=== PATIENT | female | born 1985 | race Caucasian/White ===

== ENCOUNTER 2018-03-20 19:19 | Emergency (ER) | payer SELFPAY ==
[2018-03-20 19:46] VITALS: O2SAT 98
--- NOTE | 2018-03-20 20:11 | ED.PDOC ---
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 Time Seen by Provider: 03/20/18 19:48 Source: patient Exam Limitations: no limitations - History of Present Illness Timing/Duration: this afternoon Quality: mild Onset Location: vaginal Radiation: none Activites at Onset: none Improving Factors: nothing Worsening Factors: nothing Associated Symptoms: other - pt reports vaginal bleeding, minimal with two small clots, unknown weeks , last perior was in january, possitive preg in february Home Medications: Ambulatory Orders Ferrous Sulfate 324 mg PO DAILY #30 tab 03/20/18 Nitrofurantoin Monohydrate Mac [Macrobid] 100 mg PO BID #14 capsule 03/20/18 Review of Systems - Review of Systems Constitutional: States: no symptoms reported EENTM: States: no symptoms reported Respiratory: States: no symptoms reported Cardiology: States: no symptoms reported Gastrointestinal/Abdominal: States: no symptoms reported Genitourinary: States: other - vaginal bleeding Musculoskeletal: States: no symptoms reported Skin: States: no symptoms reported Neurological: States: no symptoms reported Endocrine: States: no symptoms reported Past Medical History (General) - Patient Medical History Hx Thyroid Disease: Yes Surgical History: other - Vaccination History Hx Tetanus, Diphtheria Vaccination: No Hx Influenza Vaccination: No Hx Pneumococcal Vaccination: Yes - Social History Hx Alcohol Use: Yes - social - Female History Hx Last Menstrual Period: 02/04/18 Patient : Yes - unknown Family Medical History - Family History Mother Hx Family;Other: thyroid Physical Exam - Physical Exam General Appearance: Alert, Anxious Eyes, Ears, Nose, Throat Exam: PERRL/EOMI, normal ENT inspection, TMs normal Neck: non-tender, full range of motion, supple Cardiovascular/Respiratory: regular rate, rhythm, no M/R/G, normal peripheral pulses, no JVD Gastrointestinal/Abdominal: normal bowel sounds, non tender, soft Back Exam: normal inspection, no CVA tenderness, no vertebral tenderness Extremity: normal range of motion, non-tender, normal inspection Neurologic: no motor/sensory deficits, alert Skin Exam: normal color, warm/dry Progress - Progress Progress: 03/20/18 21:05 03/20/18 20:18 URINE CULTURE W/COLONY COUNT Stat Laboratory Results WBC 7.1 K/mm3 (4.8-10.8) 03/20/18 19:49 RBC 3.40 M/mm3 (4.20-5.40) L 03/20/18 19:49 Hgb 10.2 gm/dL (12.0-16.0) L 03/20/18 19:49 Hct 31.2 % (36.0-47.0) L 03/20/18 19:49 MCV 91.7 fl (81.0-99.0) 03/20/18 19:49 MCH 30.0 pg (27.0-31.0) 03/20/18 19:49 MCHC 32.6 g/dL (33.0-37.0) L 03/20/18 19:49 RDW 18.7 % (11.5-14.5) H 03/20/18 19:49 Plt Count 282 K/mm3 (130-400) 03/20/18 19:49 MPV 7.6 fl (7.40-10.4) 03/20/18 19:49 Absolute Neuts (auto) 4.50 K/uL (1.8-6.8) 03/20/18 19:49 Absolute Lymphs (auto) 1.80 K/uL (1.0-3.4) 03/20/18 19:49 Absolute Monos (auto) 0.50 K/uL (0.2-0.8) 03/20/18 19:49 Absolute Eos (auto) 0.20 K/uL (0.0-0.4) 03/20/18 19:49 Absolute Basos (auto) 0.00 K/uL (0.0-0.1) 03/20/18 19:49 Neutrophils % 63.9 % (42.0-78.0) 03/20/18 19:49 Lymphocytes % 25.7 % (20.0-50.0) 03/20/18 19:49 Monocytes % 7.0 % (2.0-9.0) 03/20/18 19:49 Eosinophils % 3.2 % (1.0-5.0) 03/20/18 19:49 Basophils % 0.2 % (0.0-2.0) 03/20/18 19:49 Sodium 140 mmol/L (135-145) 03/20/18 19:49 Potassium 3.8 mmol/L (3.6-5.0) 03/20/18 19:49 Chloride 109 mmol/L (101-111) 03/20/18 19:49 Carbon Dioxide 25 mmol/L (21-31) 03/20/18 19:49 Anion Gap 9.8 (12-18) L 03/20/18 19:49 BUN 9 mg/dL (7-18) 03/20/18 19:49 Creatinine 0.83 mg/dL (0.6-1.3) 03/20/18 19:49 BUN/Creatinine Ratio 10.8 (10-20) 03/20/18 19:49 Random Glucose 106 mg/dL (70-105) H 03/20/18 19:49 Serum Osmolality 278.5 mOsm/L (275-295) 03/20/18 19:49 Calcium 8.1 mg/dL (8.4-10.2) L 03/20/18 19:49 Total Bilirubin 0.3 mg/dL (0.2-1.0) 03/20/18 19:49 AST 15 IU/L (10-42) 03/20/18 19:49 ALT 14 IU/L (10-60) 03/20/18 19:49 Alkaline Phosphatase 60 IU/L (42-121) 03/20/18 19:49 Serum Total Protein 6.7 gm/dL (6.4-8.2) 03/20/18 19:49 Albumin 3.8 g/dl (3.2-5.5) 03/20/18 19:49 Globulin 2.9 gm/dL (2.3-3.5) 03/20/18 19:49 Albumin/Globulin Ratio 1.3 (1.1-1.9) 03/20/18 19:49 Beta HCG, Quant 130.4 mIU/mL (0-4.9) H 03/20/18 19:49 Urine Color Red (Yellow) H 03/20/18 20:18 Urine Appearance Cloudy (Clear) 03/20/18 20:18 Urine pH 6.0 (4.5-7.8) 03/20/18 20:18 Ur Specific [place] 1.025 (1.005-1.030) 03/20/18 20:18 Urine Protein 30 mg/dL 03/20/18 20:18 Urine Glucose (UA) Negative mg/dL (Negative) 03/20/18 20:18 Urine Ketones Negative mg/dL (NEGATIVE) 03/20/18 20:18 Urine Blood Large (Negative) H 03/20/18 20:18 Urine Nitrite Negative 03/20/18 20:18 Urine Bilirubin Negative (NEGATIVE) 03/20/18 20:18 Urine Urobilinogen 0.2 mg/dL (0.2-1.0) 03/20/18 20:18 Ur Leukocyte Esterase Small (Negative) H 03/20/18 20:18 Urine RBC Tntc /hpf H 03/20/18 20:18 Urine WBC 1-3 /hpf 03/20/18 20:18 Ur Epithelial Cells 3-5 /hpf 03/20/18 20:18 Urine Bacteria 3+ H 03/20/18 20:18 Patient ABO/Rh O POSITIVE 03/20/18 19:49 Departure - Departure Clinical Impression: Threatened Anemia Qualifiers: Anemia type: iron deficiency Iron deficiency anemia type: other iron deficiency Qualified Code(s): D50.8 - Other iron deficiency anemias Urinary tract infection Qualifiers: Urinary tract infection type: acute cystitis Hematuria presence: with hematuria Qualified Code(s): N30.01 - Acute cystitis with hematuria Time of Disposition: 21:03 Disposition: Discharge to Home or Self Care Condition: Fair Departure Forms: ED Discharge - Pt. Copy, Patient Portal Self Enrollment Instructions: DI for Threatened Diet: resume usual diet Activity: increase activity as tolerated Referrals: Jared Campa MD [Primary Care Provider] - 1-2 Days (for repeat Quant HCG level) Prescriptions: Ferrous Sulfate 324 mg PO DAILY #30 tab Nitrofurantoin Monohydrate Mac [Macrobid] 100 mg PO BID #14 capsule Home Medications: Ambulatory Orders Ferrous Sulfate 324 mg PO DAILY #30 tab 03/20/18 Nitrofurantoin Monohydrate Mac [Macrobid] 100 mg PO BID #14 capsule 03/20/18
[2018-03-20 21:11] VITALS: BP 96/56; TEMP 98.1
== END 2018-03-20 21:14 | disposition home or self-care (01) ==
LOC: ER 19:19
DX: O20.0 Threatened abortion (principal); O23.11 Infections of bladder in pregnancy, first trimester; O99.011 Anemia complicating pregnancy, first trimester; Z3A.00 Weeks of gestation of pregnancy not specified

== ENCOUNTER 2018-03-23 13:43 | Emergency (ER) | payer SELFPAY ==
[2018-03-23 14:05] VITALS: BP 116/76; TEMP 98.8; O2SAT 96
--- NOTE | 2018-03-23 15:34 | ED.PDOC ---
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 She showed appear today. She has been having minimal spotting since Friday. No real abdominal pain. The patient's beta hCG was 130 on Friday. Today it is down to 35. blood type is O+ based on lab work from last Friday. Timing/Duration: unsure Severity: moderate Improving Factors: nothing Worsening Factors: nothing Associated Symptoms: denies symptoms Home Medications: Ambulatory Orders Ferrous Sulfate 324 mg PO DAILY #30 tab 03/20/18 Nitrofurantoin Monohydrate Mac [Macrobid] 100 mg PO BID #14 capsule 03/20/18 Review of Systems - Review of Systems Constitutional: States: no symptoms reported EENTM: States: no symptoms reported Respiratory: States: no symptoms reported Cardiology: States: no symptoms reported Gastrointestinal/Abdominal: States: no symptoms reported Genitourinary: States: see HPI Musculoskeletal: States: no symptoms reported Skin: States: no symptoms reported Neurological: States: no symptoms reported Endocrine: States: no symptoms reported All other Systems: No Change from Baseline Past Medical History (General) - Patient Medical History Hx Stroke: No Hx Asthma: Yes Hx Congestive Heart Failure: No Hx Thyroid Disease: Yes Hx Diabetes: No Surgical History: no surgical history - Vaccination History Hx Tetanus, Diphtheria Vaccination: No Hx Influenza Vaccination: No Hx Pneumococcal Vaccination: Yes - Social History Hx Tobacco Use: Yes Hx Alcohol Use: Yes - social - Female History Hx Last Menstrual Period: 02/04/18 Patient : Yes - unknown Family Medical History - Family History Mother Hx Family;Other: thyroid Physical Exam - Physical Exam General Appearance: Alert, Comfortable, No apparent distress Eye Exam: bilateral normal Ears, Nose, Throat: hearing grossly normal Neck: full range of motion Respiratory: no respiratory distress, no accessory muscle use Cardiovascular/Chest: normal peripheral pulses, no edema, other - egular rate Peripheral Pulses: radial,right: 2+, radial,left: 2+, dorsalis pedis,right: 2+, dorsalis pedis,left: 2+ Gastrointestinal/Abdominal: non tender, soft Rectal Exam: deferred Back Exam: normal inspection, no CVA tenderness, no vertebral tenderness Extremity: non-tender, normal inspection, no pedal edema, normal capillary refill 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 She was seen last Reji here and had a beta hCG of 130. It is down to 35 today indicating a miscarriage. Based on the fact that she was less than 4 weeks along in her , she has likely already passed the entirety of the products of conception. low resolution transabdominal Ultrasound here today failed to show any significant amount of retained products. she will likely still have some spotting and mild clot passage for the next couple of days. She does need to have pelvic rest for the next couple of weeks. She does need to have a repeat quantitative hCG in 4 weeks to make sure that it is completely normalizing. ER warnings were given. She should follow-up with her primary care doctor in a couple of weeks. Departure - Departure Clinical Impression: Miscarriage Disposition: Discharge to Home or Self Care Condition: Fair Departure Forms: ED Discharge - Pt. Copy, Patient Portal Self Enrollment Instructions: DI for Miscarriage Diet: regular diet Activity: increase activity as tolerated Home Medications: Ambulatory Orders Ferrous Sulfate 324 mg PO DAILY #30 tab 03/20/18 Nitrofurantoin Monohydrate Mac [Macrobid] 100 mg PO BID #14 capsule 03/20/18 Additional Instructions: the patient is a 32-year-old female presenting to emergency room secondary to the need for follow-up from a threatened . She was seen last Reji here and had a beta hCG of 130. It is down to 35 today indicating a miscarriage. Based on the fact that she was less than 4 weeks along in her , she has likely already passed the entirety of the products of conception. low resolution transabdominal Ultrasound here today failed to show any significant amount of retained products. she will likely still have some spotting and mild clot passage for the next couple of days. She does need to have pelvic rest for the next couple of weeks. She does need to have a repeat quantitative hCG in 4 weeks to make sure that it is completely normalizing. ER warnings were given. She should follow-up with her primary care doctor in a couple of weeks.
== END 2018-03-23 15:59 | disposition home or self-care (01) ==
LOC: ER 13:43
DX: O03.9 Complete or unspecified spontaneous abortion without complication (principal)